=== PATIENT | male | born 1950 | race Caucasian/White ===

== ENCOUNTER 2017-02-01 07:53 | Day surgery (SDC) | payer OTHER ==
[~2017-02-01] VITALS: Ht 182.9 cm; Wt 107.9 kg
[~2017-02-01 07:53] MED LIST: ADVIL PM CAPLE1 EAC1 PO; CATAPRES0.2 MG PO; CHLORZOXAZONE500 MG PO; DESYREL 150 MG150 MG PO; DIPHENHYDRAMINE PO; HYDROCODONE-AP1 EAC7 PO; LABETALOL HCL100 MG PO; LORCET 5-325 M1 EACH PO; MAGNESIUM250 MG PO; NEURONTIN300 MG PO; NORVASC5 MG PO; SIMVASTATIN40 M1 G-TUBE; SIMVASTATIN40 MG PO; TEKTURNA150 MG PO; TRAMADOL HCL50 MG PO; ZESTRIL,PRINIVI20 MG PO; ZESTRIL10 MG PO
== END 2017-02-01 09:22 | disposition home or self-care (01) ==
LOC: PAIN 07:53
DX: M47.26 Other spondylosis with radiculopathy, lumbar region (principal); M51.16 Intervertebral disc disorders with radiculopathy, lumbar region; M54.5 Low back pain; M50.90 Cervical disc disorder, unspecified, unspecified cervical region; M48.06 Spinal stenosis, lumbar region; G62.9 Polyneuropathy, unspecified; I10 Essential (primary) hypertension; F41.8 Other specified anxiety disorders; E78.5 Hyperlipidemia, unspecified; E66.9 Obesity, unspecified; Z68.32 Body mass index [BMI] 32.0-32.9, adult; Z79.891 Long term (current) use of opiate analgesic
CPT/HCPCS: J1030; J2250; J3010

== ENCOUNTER 2017-05-14 09:42 | Day surgery (SDC) | payer OTHER ==
[~2017-05-14] VITALS: Ht 182.9 cm; Wt 106.0 kg
== END 2017-05-14 11:10 | disposition home or self-care (01) ==
LOC: PAIN 09:42 → SDC 10:15 → PAIN 10:15
DX: M47.26 Other spondylosis with radiculopathy, lumbar region (principal); M51.16 Intervertebral disc disorders with radiculopathy, lumbar region; M48.061 Spinal stenosis, lumbar region without neurogenic claudication; K21.9 Gastro-esophageal reflux disease without esophagitis; I10 Essential (primary) hypertension; E78.5 Hyperlipidemia, unspecified; M50.31 Other cervical disc degeneration, high cervical region; R01.1 Cardiac murmur, unspecified; E66.9 Obesity, unspecified; Z68.32 Body mass index [BMI] 32.0-32.9, adult
CPT/HCPCS: J1030; J2250; J3010; S0020

== ENCOUNTER 2017-07-05 10:46 | Day surgery (SDC) | payer OTHER ==
[~2017-07-05] VITALS: Ht 182.9 cm; Wt 106.6 kg
[~2017-07-05 10:46] MED LIST changes: +ZANAFLEX2 M1 PO
== END 2017-07-05 13:00 | disposition home or self-care (01) ==
LOC: PAIN 10:46 → CATH 11:15 → SDC 11:15 → PAIN 12:15
DX: M47.26 Other spondylosis with radiculopathy, lumbar region (principal); M51.16 Intervertebral disc disorders with radiculopathy, lumbar region; M54.5 Low back pain; G89.29 Other chronic pain; M50.90 Cervical disc disorder, unspecified, unspecified cervical region; M41.9 Scoliosis, unspecified; K21.9 Gastro-esophageal reflux disease without esophagitis; I10 Essential (primary) hypertension; E78.5 Hyperlipidemia, unspecified; Z79.891 Long term (current) use of opiate analgesic
CPT/HCPCS: J1030; J2250; J3010; S0020